=== PATIENT | female | born 1975 | race Native Hawaiian/Other Pacific Islander ===

== ENCOUNTER 2021-03-26 19:52 | Emergency (ER) | payer OTHER ==
[~2021-03-26] VITALS: Ht 165.1 cm; Wt 68.0 kg
[2021-03-26 21:15] VITALS: BP 131/80; TEMP 98.1
== END 2021-03-26 21:30 | disposition home or self-care (01) ==
LOC: ED 19:52
DX: S93.491A Sprain of other ligament of right ankle, initial encounter (principal); W01.0XXA Fall on same level from slipping, tripping and stumbling without subsequent striking against object, initial encounter; Y92.098 Other place in other non-institutional residence as the place of occurrence of the external cause
CPT/HCPCS: 99283

== ENCOUNTER 2021-12-19 17:29 | Emergency (ER) | payer OTHER ==
[~2021-12-19] VITALS: Ht 165.1 cm; Wt 68.0 kg
[2021-12-19 17:33] VITALS: BP 150/90; TEMP 98.3
[2021-12-19 18:02] LABS: PLATELET COUNT 132 K/uL (152-353)
[2021-12-19 18:24] LABS: POTASSIUM 3.7 mmol/L (3.6-5.2)
[2021-12-19 18:31] LABS: PARTIAL THROMBOPLASTIN TIME 26.5 SECONDS (24.5-33.6)
== END 2021-12-19 19:06 | disposition home or self-care (01) ==
LOC: ED 17:29
PROVIDERS: Hospitalist
DX: R07.89 Other chest pain (principal); K21.9 Gastro-esophageal reflux disease without esophagitis
CPT/HCPCS: 80053; 80320; 82550; 83690; 83880; 84484; 85027; 85610; 85730; 93005; 99283